=== PATIENT | male | born 1970 | race Caucasian/White ===

== ENCOUNTER 2016-12-02 08:54 | Observation (INO) ==
[2016-12-02] MEDS ORDERED: Naloxone 0.4 MG/ML INJ IVP PRN (11:33)
[2016-12-02] MEDS ORDERED: Acetaminophen 325 MG TABLET PO PRN (11:33)
[2016-12-02] MEDS ORDERED: Ondansetron ODT 4 MG TAB.RAPDIS SL PRN (11:33)
[2016-12-02] MEDS ORDERED: Albuterol 2.5 MG/3 ML NEBULIZER IH PRN (11:38)
[2016-12-02] MEDS ORDERED: Loratadine 10 MG TABLET PO SCH (11:45)
--- NOTE | 2016-12-02 12:43 | Internal Med History&Physical ---
<Jeannie Castañeda M - Last Filed: 12/02/16 16:31> Date of Encounter: 12/02/16 Time of Encounter: 12:36 Assessment and Plan (1) Angioedema Current visit: Yes Status: Acute Patient presented to [facility] ER with tongue swelling first noted at 4am. He also reported feeling chest tightness. He took [address] to ED. At [facility], he received 2 doses of epinephrine, Duoneb treatment, pepcid and 125mg of Solu-Medrol. On exam, patient's tongue swelling has resolved, lungs are clear. Patient denies any new medications, new foods or exposures. 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 He took his Lexapro and omeprazole last evening, but has taken them for years. Hold Lexapro Solu Medrol 60mg IVP BID Pepcid 20mg IVP BID Epinephrine PRN for anaphylaxis. Duoneb treatments QID Albutrol Q2hr PRN Recommend follow up with director of kids as outpatient. Qualifiers: Encounter type: initial encounter Qualified Code(s): T78.3XXA - Angioneurotic edema, initial encounter (2) Asthma Current visit: Yes Status: Acute Patient reported wheezing last evening and chest tightness this morning, relieved by duoneb treatments in [facility] ED. Duoneb treatments QID Albuterol nebulizer Q2hr PRN. Qualifiers: Asthma severity: mild intermittent Asthma complication type: with acute exacerbation Qualified Code(s): J45.21 - Mild intermittent asthma with (acute ) exacerbation (3) Diarrhea Current visit: Yes Status: Acute Patient reported watery, foul smelling diarrhea starting last Wednesday, accompanied by abdominal cramps, nausea and poor appetite. Had appointment with PCP yesterday, and obtained stool sample - which was negative for c.diff or other infectious process. Patient reports he has not had diarrhea since yesterday. Appetite has returned. Qualifiers: Diarrhea type: presumed infectious Qualified Code(s): A09 - Infectious gastroenteritis and colitis, unspecified (4) Acute electrocardiogram changes Current visit: Yes Status: Acute EKG from [facility] showed prolonged QT interval of 525, and ST depressions in I, II , avL, and v4-v6. Patient reports he had 2 brief episodes of chest pain on at work, none since. Patient had received epinephrine, albuterol prior to ekg. Troponin negative. Hold Lexapro and other QT prolonging agents. Continuous quality assurance monitor final serial troponins. Repeat ekg tomorrow morning. (5) Hypokalemia Current visit: Yes Status: Acute Potassium of 3.4. likely secondary to diarrhea over the last week. 20mEq of potassium in 1L of 0.9NS. Recheck chemistry in the morning. (6) Hypomagnesemia Current visit: Yes Status: Acute magnesium of 1.6. Patient given 1g of magnesium at [facility] ED. Recheck magnesium with morning labs. (7) DVT prophylaxis Current visit: Yes Status: Acute anti-embolic stockings Internal Medicine - H&P: HPI Chief complaint: angioedema Admitted From: Emergency Dept Plans for Post Hospital Care: Home History of present illness: Mr. Combs is a 46 year old male with asthma, anxiety, GERD who was transferred from [facility] ED with angioedema and EKG changes. Patient reports that last evening he was having some wheezing, but did not think much of it, he woke up at 4 AM with right-sided tongue swelling. He waited to see if it would go away, and it seemed to get worse so he presented to [facility] emergency department. He reports he took [address] to the emergency department which seemed to improve. Swelling, there was tongue was so swollen he had difficulty swallowing the pills. He denies any hives, itching, watery eyes, sneezing. 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 He also has allergies to mold and tree pollen, and asthma. In addition to the tongue swelling he reports he noticed chest tightness at about the same time, he reports this was relieved by albuterol treatment in the [facility] ER. Patient reports that starting last Wednesday he had watery diarrhea which worsened over time, was green and foul smelling, and accompanied by nausea and abdominal cramps. He saw his PCP yesterday who ordered a stool sample and wanted to start him on Flagyl, which patient has not yet started. Stool sample was negative for C. difficile. Patient reports that he has not had any diarrhea since yesterday, and nausea is resolved. In the [facility] ER he received 2 epinephrine injections, 125 mg of Solu-Medrol, 20 mg of Pepcid, and symptoms started to resolve. His magnesium was noted to be low at 1.6, and his potassium was noted to be low at 3.4 he was given 1 g of magnesium IV piggyback and 20 mEq of potassium. EKG showed a prolonged QT interval of 525, as well as ST depressions in I, II, aVL, V4 to V6. Patient states he had 2 brief episodes of chest pain he remembers last while at work. He does have a family history of coronary disease with his father having heart attack at age 50. Troponin was negative. On exam , patient alert and oriented in no acute distress. Swelling of the tongue seems to be resolved, his airway is patent and open with no obstruction. Lungs are clear bilaterally to auscultation, heart has regular rate and rhythm. Past Med Surg Social Fam HX - Past Medical History Medical history: asthma, GERD Psychiatric history: anxiety - Past Surgical History Surgical History: cholecystectomy - Social History Smoking Status: Former smoker Smokeless Tobacco Status: Yes Alcohol use: none Drug use: none - Family History Mother Hx Family Cardiac Disorders: No Hx Family Respiratory Disorders: Yes (COPD, non smoking) Hx Family Cancer: No Hx Family GI Disorders: No Hx Family Genitourinary Disorders: No Hx Family Endocrine Disorder: No Hx Family Musculoskeletal Disorders: No Hx Family Neuromuscular Disorders: No Hx Family Neurologic Disorders: No Hx Family HEENT Disorders: No Hx Family Autoimmune Disorders: Yes (RA) Hx Family Reproductive Disorders: No Hx Family Psychosocial Disorders: No Hx Family Medical Disorders: No Father Hx Family Cardiac Disorders: Yes (NH) Hx Family Respiratory Disorders: Yes (black lung) Hx Family Cancer: No Hx Family GI Disorders: Yes (GERD) Hx Family Genitourinary Disorders: No Hx Family Endocrine Disorder: Yes (Thyroid) Hx Family Musculoskeletal Disorders: No Hx Family Neuromuscular Disorders: No Hx Family Neurologic Disorders: No Hx Family HEENT Disorders: No Hx Family Autoimmune Disorders: No Hx Family Reproductive Disorders: No Hx Family Psychosocial Disorders: No Hx Family Medical Disorders: No Internal Medicine - H&P: Meds Acetaminophen [Tylenol] 1,000 mg PO Q6HR PRN 12/02/16 [History] Albuterol Neb [Proventil Neb] 2.5 mg IH Q6H PRN 12/02/16 [History] Albuterol Sulfate [Albuterol Inhaler] 2 puff IH Q6HR PRN 12/02/16 [History] Escitalopram [Lexapro] 10 mg PO DAILY 12/02/16 [History] Omeprazole [PriLOSEC] 40 mg PO DAILY 12/02/16 [History] Simvastatin [Zocor] 20 mg PO HS 12/02/16 [History] metroNIDAZOLE [Flagyl] 500 mg PO BID 12/02/16 [History] Allergies NSAIDS (Non-Steroidal Anti-Inflamma Allergy (Verified 12/02/16 11:21) Swelling of Lip/Tongue/Throat All Systems PM: A 10-system review of systems was performed and is negative for pertinent findings except as documented above in the HPI. - Constitutional Constitutional: no chills, no fever(s), no night sweats - EENT Eyes: no change in vision, no discharge, no pain, no photophobia Ears: no ear discharge, no ear pain, no tinnitus Nose, mouth and throat: tongue swelling, no dysphagia, no nasal discharge, no neck pain, no sore throat - Cardiovascular Cardiovascular ROS IM: no chest pain, no diaphoresis, no dyspnea, no lightheadedness, no palpitations, no syncope - Respiratory Respiratory: wheezing, other (chest tightness), no cough, no dyspnea, no excessive phlegm production - Gastrointestinal Gastrointestinal: abdominal pain, diarrhea, nausea, no hematemesis, no hematochezia, no melena, no vomiting - Musculoskeletal Musculoskeletal ROS IM: no numbness, no tingling - Integumentary Integumentary IM: no rash, no unusual bruising - Neurological Neurological ROS: no confusion, no convulsions, no focal weakness, no numbness, no tingling, no tremor(s) - Hematologic/Lymphatic Hematologic/Lymphatic: no easy bruising - Allergic/Immunologic Allergic/Immunologic: tongue swelling, wheezing - Constitutional Vitals: Temp Pulse Resp BP Pulse Ox 98.3 F 108 18 109/64 93 12/02/16 11:22 12/02/16 11:22 12/02/16 11:22 12/02/16 11:22 12/02/16 11:22 General appearance: Present: A&O X 3, pleasant, no acute distress - Head Head exam: Present: atraumatic, normocephalic - Eye Eye exam: Present: PERRL, conjuntiva pink, sclera anicteric Pupils: Present: PERRL - Neck Neck exam general surgery: Present: supple, trachea midline. Absent: lymphadenopathy - Respiratory Respiratory exam: Present: CTAB. Absent: accessory muscle use, rales, rhonchi, wheezes - Cardiovascular Cardiovascular exam: Present: RRR, +S1, +S2. Absent: diastolic murmur, gallop, rubs, systolic murmur - GI/Abdominal GI/Abdominal exam: Present: normal bowel sounds, soft, no peritoneal signs. Absent: distended, tenderness - Extremities Exam Extremities exam: Present: warm, radial pulses palpable and symetrical. Absent : calf tenderness, cyanotic, pedal edema - Neurological Exam Neurological exam: Present: CN II-XII intact, oriented X3, no focal deficits. Absent: pronater drift, facial droop, speech deficit - Skin Skin exam: Present: dry, intact Internal Med - H&P Results - Labs Labs: Labs from [facility]: Na 140 K 3.4 Cl 104 CO2 27 BUN 7 Cr 1.02 Glu 109 CA 8.2 Mg 1.6 WBC 6.4 RBC 5.04 Hgb 15.5 Hct 46.2 Plt 257 Trop < 0.05 <Henry Gaona - Last Filed: 12/02/16 18:03> Date of Encounter: 12/02/16 Internal Medicine - H&P: HPI History of present illness: Mr. Combs is a 46 year old male All Systems PM: A 10-system review of systems was performed and is negative for pertinent findings except as documented above in the HPI. - Constitutional Vitals: Temp Pulse Resp BP Pulse Ox 98.5 F 109 16 126/80 95 12/02/16 15:12 12/02/16 15:12 12/02/16 15:12 12/02/16 15:12 12/02/16 15:12 Internal Med - H&P Results - Labs Labs: Cardiac Enzymes 12/02/16 Range/Units 13:39 Troponin I 0.01 (0-0.03) ng/mL - Attending Attestation I examined this patient and my medical decision-making was reviewed with the Advanced Practice Nurse. I agree with the documented findings, disposition and treatment plan as described except to the extent set forth below. Patient reports his tongue swelling has completely resolved, lip swelling is very mild right now. Heart exam: Regular rate and rhythm S1-S2. Lungs clear to auscultation bilaterally. Plan: IV Solu-Medrol. IV fluids and potassium repletion. Benadryl and Pepcid. Stop Lexapro due to QT prolongation. Repeat EKG to monitor QT. Avoid SSRIs and recommend selecting a different antidepressant/antianxiety medication. Consider referral to outpatient psychiatry. Consider hereditary angioedema and outpatient testing for C1q inhibitor levels.
[2016-12-02] MEDS ORDERED: *HR* EPINEPHrine 0.3 MG/0.3 ML (PEN) IM PRN (12:44)
[2016-12-02] MEDS: 0.9 % Sodium Chloride w KCl 20 MEQ/1,000 ML MLS IVC SCH ×2 (14:22→21:46)
[2016-12-02] MEDS: Ipratropium/Albuterol Neb 3 ML IH SCH ×3 (14:41→23:40)
[2016-12-02] MEDS: methylPREDNISolone 125 MG/2 ML VIAL IVP SCH (17:06)
[2016-12-02] MEDS: Famotidine 20 MG/2 ML VIAL IVP SCH (17:06)
[2016-12-02 18:54] LABS: BUN/Creatinine Ratio 10 (6-26); Blood Urea Nitrogen 10 mg/dL (8-26); Calcium 9.1 mg/dL (8.6-10.8); Carbon Dioxide 21 mEq/L (19-29); Chloride 109 mEq/L (98-109); Glucose 198 mg/dL (70-99); Osmolality,Calculated 293 (280-300); Potassium 3.7 mEq/L (3.5-4.5); Sodium 139 mEq/L (136-145); eGFR For African Americans > 60 (> 60); eGFR For Non-African Americans > 60 (> 60)
[2016-12-03] MEDS: Ipratropium/Albuterol Neb 3 ML IH SCH ×2 (03:29→11:07)
[2016-12-03] MEDS: Famotidine 20 MG/2 ML VIAL IVP SCH (05:54)
[2016-12-03] MEDS: methylPREDNISolone 125 MG/2 ML VIAL IVP SCH (05:54)
[2016-12-03 06:24] LABS: Basophils % 0.1 %; Hemoglobin 14.2 g/dL (12.9-16.9); Immature Granulocytes % 0.9 % (0-4); Lymphocytes # 0.9 K/mcL (0.6-4.6); Lymphocytes % 6.3 %; Mean Corpuscular HGB Conc 35.5 g/dL (31.6-35.5); Mean Corpuscular Hemoglobin 32.1 pg (28.0-33.3); Mean Corpuscular Volume 90.3 fL (83.0-100.0); Mean Platelet Volume 9.5 fL (9.4-12.4); Monocytes # 0.8 K/mcL (0.0-1.3); Monocytes % 5.6 %; Neutrophils # 12.2 K/mcL (1.6-8.9); Platelet Count 258 K/mcL (140-400); Red Blood Count 4.43 M/mcL (4.19-5.50); Red Cell Distribution Width 12.5 % (11.5-14.5); Segmented Neutrophils % 87.1 %
[2016-12-03 06:39] LABS: BUN/Creatinine Ratio 11 (6-26); Blood Urea Nitrogen 10 mg/dL (8-26); Calcium 8.9 mg/dL (8.6-10.8); Carbon Dioxide 20 mEq/L (19-29); Chloride 109 mEq/L (98-109); Glucose 158 mg/dL (70-99); Osmolality,Calculated 290 (280-300); Potassium 3.6 mEq/L (3.5-4.5); Sodium 139 mEq/L (136-145); eGFR For African Americans > 60 (> 60); eGFR For Non-African Americans > 60 (> 60)
[2016-12-03] MEDS: 0.9 % Sodium Chloride w KCl 20 MEQ/1,000 ML MLS IVC SCH (07:18)
[2016-12-03 11:16] VITALS: BP 113/70
--- NOTE | 2016-12-03 11:34 | Discharge Summary ---
Date of Encounter: 12/03/16 Time of Encounter: 10:30 - Discharge Diagnosis (1) Angioedema Priority: Primary Status: Resolved Qualifiers: Encounter type: initial encounter Qualified Code(s): T78.3XXA - Angioneurotic edema, initial encounter (2) Acute electrocardiogram changes Priority: Primary Status: Resolved (3) Asthma Priority: Secondary Status: Chronic Qualifiers: Asthma severity: mild intermittent Asthma complication type: with acute exacerbation Qualified Code(s): J45.21 - Mild intermittent asthma with (acute ) exacerbation (4) Diarrhea Priority: Primary Status: Resolved Qualifiers: Diarrhea type: presumed infectious Qualified Code(s): A09 - Infectious gastroenteritis and colitis, unspecified (5) DVT prophylaxis Priority: Primary Status: Acute Comments: observation patient; up ad dara. (6) Hypokalemia Priority: Primary Status: Resolved Comments: 3.4 at [facility]; normal here. likely 2/2 diarrhea that has since resolved. (7) Hypomagnesemia Priority: Primary Status: Resolved Comments: 1.6 at [facility], normal here. Likely 2/2 diarrhea that has since resolved. - Discharge Medications Prescriptions: EPINEPHrine [Epipen] 0.3 mg IM ONCE PRN #1 auto.injct PRN Reason: Anaphylaxis Home Medications: Acetaminophen [Tylenol] 1,000 mg PO Q6HR PRN 12/02/16 [History] Albuterol Neb [Proventil Neb] 2.5 mg IH Q6H PRN 12/02/16 [History] Albuterol Sulfate [Albuterol Inhaler] 2 puff IH Q6HR PRN 12/02/16 [History] Escitalopram [Lexapro] 10 mg PO DAILY 12/02/16 [History] Omeprazole [PriLOSEC] 40 mg PO DAILY 12/02/16 [History] Simvastatin [Zocor] 20 mg PO HS 12/02/16 [History] metroNIDAZOLE [Flagyl] 500 mg PO BID 12/02/16 [History] EPINEPHrine [Epipen] 0.3 mg IM ONCE PRN #1 auto.injct 12/03/16 [Rx] Allergies/Adverse Reactions: Allergies NSAIDS (Non-Steroidal Anti-Inflamma Allergy (Verified 12/02/16 11:21) Swelling of Lip/Tongue/Throat Procedures/tests Complete & Pending: Procedures Performed prior 72 hours Category Date Time Status ECG 12 lead ECG [ECG] AM 0600 Y 12/03/16 06:00 Completed Date of admission: 12/02/16 10:25 Primary care physician: Kavitha Howell CNP Discharging clinician: Cindy Gann Anticipated date of discharge: 12/03/16 - Patient Status Disposition: Home, Self-Care Condition: Good Functional capacity at discharge: independent ambulation Overall status at discharge: patient is back to baseline - Discharge Instructions Follow Up With: Kavitha Howell CNP [Primary Care Provider] - [facility] [Provider Group] Additional Instructions: Follow-up with primary care provider within one to 2 weeks, follow-up with allergy as soon as possible - Diet and Activity Activity: increase activity as tolerated, resume usual activities as tolerated Diet: regular diet Hospital course: Mr. Combs is a 46 year old male with past medical history of asthma, anxiety , GERD. Patient was transferred from [facility] emergency department with chief complaint of angioedema and EKG changes. Patient stating on the evening prior to presentation that he started to develop wheezing but did not think much of it until he woke up in the middle the night with right-sided tongue swelling. He waited to see if it would go away and it worsened prompting his presentation to [facility]'s emergency Department. Patient reported that he took [address] to the emergency department which seemed to help his symptoms. His swelling however was so bad and his tongue that he had difficulty swallowing pills. He denied any hives, itching. He does have a history of anaphylactic reactions to NSAIDs with tongue swelling and hives in the past. He also has environmental allergies to mold and tree pollen. Patient also endorsed watery diarrhea that started last Wednesday and had worsened and became green and malodorous and was associated with nausea and abdominal cramping. He saw his primary care provider on the day prior to presentation he ordered a stool sample that was reportedly negative for C. difficile and the patient was started on Flagyl at that time. He had not taken any doses of Flagyl yet. Patient's diarrhea resolved just prior to presentation. He was also able to tolerate a regular diet. In [facility]'s emergency Department, he received 2 epinephrine injections, Solu-Medrol, Pepcid, and his symptoms started to resolve. He was hypomagnesemic and hypokalemic and both were repleted. He had positive EKG changes with prolonged QTc interval of [address] depressions in leads 1, 2, aVL, V4 to V6. He said he did have 2 brief episodes of chest pain last week while he was at work. He was transferred to [facility] and admitted to the hospitalist service for further evaluation and management. His hypomagnesemia and hypokalemia resolved. He was able to tolerate a regular diet while admitted and no longer had any symptoms. No further angioedema or tongue swelling. No further wheezing. His EKG changes also resolved and EKG report prior to discharge was normal sinus rhythm with QTC of 402-likely cause of abnormal EKG changes were the epinephrine and albuterol he had received just prior to the EKG. He was safe to resume his Lexapro at discharge. Unknown causation of this episode, patient has had episodes like this in the past also with unknown causes. Recommend close outpatient follow-up with receiving weigher. He was discharged home in stable condition with close outpatient follow-up recommended. - Time Spent with Patient Total time spent providing and/or coordinating discharge services: - Constitutional Vitals: Temp Pulse Resp BP Pulse Ox 97.8 F 98 17 113/70 100 12/03/16 11:13 12/03/16 11:13 12/03/16 11:13 12/03/16 11:13 12/03/16 11:13 General appearance: Present: A&O X 3, pleasant, no acute distress, answers questions appropriately - Head Head exam: Present: atraumatic, normocephalic - Eye Eye exam: Present: PERRL, conjuntiva pink, sclera anicteric Pupils: Present: PERRL - Neck Neck exam general surgery: Present: supple, trachea midline. Absent: lymphadenopathy - Respiratory Respiratory exam: Present: CTAB. Absent: accessory muscle use, rales, respiratory distress, rhonchi, wheezes - Cardiovascular Cardiovascular exam: Present: RRR, +S1, +S2. Absent: diastolic murmur, gallop, rubs, systolic murmur - GI/Abdominal GI/Abdominal exam: Present: normal bowel sounds, soft, no peritoneal signs. Absent: distended, tenderness - Extremities Exam Extremities exam: Present: warm, radial pulses palpable and symetrical. Absent : calf tenderness, cyanotic, pedal edema - Neurological Exam Neurological exam: Present: alert, CN II-XII intact, normal gait, oriented X3, no focal deficits, strengths equal and symetr throughout. Absent: pronater drift, facial droop, speech deficit - Skin Skin exam: Present: dry, intact, normal color, warm
--- NOTE | 2016-12-03 14:48 | Electrocardiograph Report ---
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
--- NOTE | 2016-12-03 15:08 | Electrocardiograph Report ---
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
== END 2016-12-03 12:47 | disposition home or self-care (01) ==
LOC: 3BNU
PROVIDERS: ADMIT Internal Medicine; ATTEND Nurse Practitioner Family